=== PATIENT | female | born 1995 | race African-American/Black ===

== ENCOUNTER 2024-06-21 14:34 | Inpatient (IN) | payer MEDICAID ==
[~2024-06-21] VITALS: Ht 162.6 cm; Wt 64.0 kg
[2024-06-21] MEDS: SODIUM CHLORIDE 0.9% 1,000 ML IV ONE (15:41)
[2024-06-21] MEDS: SODIUM CHLORIDE 0.9% (SEPSIS BOLUS) IV ONE (16:00)
[2024-06-21] MEDS: MORPHINE SULFATE 4 MG/ML INJ (FOR IV/IM USE) IV ONE (16:00)
[2024-06-21] MEDS: ACETAMINOPHEN 1000MG/100ML 100 ML IV ONE (16:00)
[2024-06-21 16:01] LABS: BASOPHILS % 0.6 % (0.0-2.0); EOSINOPHILS % 1.6 % (0.0-5.0); LYMPHOCYTES % 7.9 % (20.0-50.0); MEAN CORPUSCULAR HEMOGLOBIN 24.4 pg (28.0-32.0); MEAN CORPUSCULAR HGB CONC 31.2 g/dL (31.0-37.0); MEAN PLATELET VOLUME 7.9 fl (7.4-10.4); MONOCYTES % 26.4 % (2.0-8.0); NEUTROPHILS % 63.5 % (40.0-76.0); PLATELET 321 x1000/uL (130-400); RED BLOOD CELL COUNT 4.11 mill/uL (4.2-5.4); RED CELL DISTRIBUTION WIDTH 16.4 % (11.6-14.6); WHITE BLOOD COUNT 3.5 x1000/uL (4.5-11.0)
[2024-06-21 16:03] LABS: CARBON DIOXIDE 21 mEq/L (21-32); CHLORIDE 105 mEq/L (98-107); POTASSIUM 3.9 mEq/L (3.5-5.1); SODIUM 134 mEq/L (136-145)
[2024-06-21 16:04] LABS: CALCIUM 9.4 mg/dL (8.7-10.4)
[2024-06-21 16:09] LABS: CREATININE 0.7 mg/dL (0.6-1.0); GLUCOSE 80 mg/dL (70-105)
[2024-06-21 16:11] LABS: PROTHROMBIN TIME 11.2 sec (9.6-11.0)
[2024-06-21 16:18] LABS: DIFFERENTIAL COMMENT 1
[2024-06-21 16:19] LABS: HCG SCREEN POSITIVE
[2024-06-21 16:37] LABS: ETHANOL BLOOD < 10 mg/dL (<10); TROPONIN I HIGH SENSITIVITY < 4 ng/L (3.0-34); UREA NITROGEN BLOOD < 5 mg/dL (9-23)
[2024-06-21 19:21] LABS: CLARITY URINE TURBID (CLEAR); COLOR URINE YELLOW (YELLOW); GLUCOSE URINE NEGATIVE (NEGATIVE); KETONES URINE 2+ (NEGATIVE); LEUKOCYTE ESTERASE URINE 1+ (NEGATIVE); NITRITE URINE POSITIVE (NEGATIVE); OCCULT BLOOD URINE TRACE (NEGATIVE); PROTEIN URINE 1+ (NEGATIVE); SPECIFIC GRAVITY URINE 1.025 (1.005-1.030)
[2024-06-21 19:36] LABS: *AMPHETAMINES SCREEN URINE NEGATIVE (NEGATIVE); *BARBITURATES SCREEN URINE NEGATIVE (NEGATIVE); *BENZODIAZEPINES SCREEN URINE NEGATIVE (NEGATIVE); *COCAINE SCREEN URINE NEGATIVE (NEGATIVE); METHADONE URINE SCREEN NEGATIVE (NEGATIVE)
[2024-06-21 19:37] LABS: CANNABINOID URINE SCREEN PRESUMPTIVE POSITIVE (NEGATIVE); ECSTASY MDMA SCREEN URINE NEGATIVE (NEGATIVE); OPIATES URINE SCREEN PRESUMPTIVE POSITIVE (NEGATIVE); PHENCYCLIDINE URINE SCREEN NEGATIVE (NEGATIVE)
[2024-06-21] MEDS: CEFTRIAXONE 1GM/50ML 50 ML IV ONE (20:19)
[2024-06-21 20:48] LABS: BACTERIA URINE 3+; SQUAMOUS EPITHELIAL CELL URINE 2+ /lpf (RARE/1+)
[2024-06-21 20:57] VITALS: PULSE 118; RESP 22; O2SAT 98
[2024-06-21] MEDS: ALBUTEROL (0.083%) 2.5MG/3ML NEB HHN ONE (20:57)
[2024-06-22] VITALS (9 sets, daily range): BP systolic 121–142; BP diastolic 68–88; PULSE 76–119; RESP 18–24; TEMP 36.28068–37.1964; O2SAT 93–100
[2024-06-22] MEDS ORDERED: ACETAMINOPHEN 325MG TABLET PO PRN (00:15)
[2024-06-22] MEDS: IPRATROPIUM/ALBUTEROL 0.5-3(2.5)MG/3ML NEB HHN SCH ×2 (02:29→13:58)
[2024-06-22] MEDS: SODIUM CHLORIDE 0.9% 1,000 ML IV SCH (06:09)
[2024-06-22 06:38] LABS: CHLORIDE 109 mEq/L (98-107); POTASSIUM 3.6 mEq/L (3.5-5.1); SODIUM 137 mEq/L (136-145)
[2024-06-22 06:39] LABS: CALCIUM 8.7 mg/dL (8.7-10.4); CARBON DIOXIDE 18 mEq/L (21-32)
[2024-06-22 06:44] LABS: CREATININE 0.6 mg/dL (0.6-1.0); GLUCOSE 70 mg/dL (70-105)
[2024-06-22 06:46] LABS: CREATINE KINASE 183 IU/L (34-145)
[2024-06-22 07:16] LABS: HEPATITIS B SURFACE ANTIGEN NEGATIVE (Negative)
[2024-06-22 07:38] LABS: HEPATITIS C AB NON REACTIVE (Neg) (Negative)
[2024-06-22 07:39] LABS: HEMATOCRIT. 28.7 % (36.0-48.0); HEMOGLOBIN. 9.3 g/dL (12.0-16.0); MEAN CORPUSCULAR HEMOGLOBIN 25.1 pg (28.0-32.0); MEAN CORPUSCULAR HGB CONC 32.4 g/dL (31.0-37.0); MEAN CORPUSCULAR VOLUME 77.7 fL (81.0-99.0); MEAN PLATELET VOLUME 8.8 fl (7.4-10.4); PLATELET 233 x1000/uL (130-400); RED CELL DISTRIBUTION WIDTH 16.3 % (11.6-14.6)
[2024-06-22 07:45] LABS: DIFFERENTIAL COMMENT 1
[2024-06-22] MEDS: BUDESONIDE 0.5MG/2ML NEB HHN SCH (08:19)
[2024-06-22 08:45] LABS: UREA NITROGEN BLOOD < 5 mg/dL (9-23)
[2024-06-22] MEDS: LEVETIRACETAM 500MG/5ML CUP PO SCH (08:52)
[2024-06-22] MEDS: CEFTRIAXONE 1GM/50ML 50 ML IV SCH (08:53)
[2024-06-22] MEDS ORDERED: IPRATROPIUM/ALBUTEROL 0.5-3(2.5)MG/3ML NEB HHN PRN (13:30)
[2024-06-22 17:20] LABS: CREATINE KINASE 189 IU/L (34-145)
[2024-06-22] MEDS ORDERED: DIPHENHYDRAMINE 50MG/ML VIAL IM PRN (19:45)
[2024-06-22] MEDS ORDERED: DIPHENHYDRAMINE 25MG CAPSULE PO PRN (21:00)
[2024-06-22 21:28] LABS: HYPOCHROMASIA 1+; MICROCYTOSIS 1+; PLATELET ESTIMATE NORMAL
[2024-06-22] MEDS ORDERED: METHYLPREDNISOLONE 40MG/ML INJ IV ONE (23:15)
[2024-06-22] MEDS ORDERED: DIPHENHYDRAMINE 50MG/ML VIAL IV ONE (23:15)
[2024-06-23] VITALS (10 sets, daily range): BP systolic 97–140; BP diastolic 50–86; PULSE 73–91; RESP 18–20; TEMP 36.33624–36.89184; O2SAT 95–99
[2024-06-23] MEDS: SODIUM CHLORIDE 0.9% 1,000 ML IV ONE (01:08)
[2024-06-23] MEDS: METHYLPREDNISOLONE SOD SUCC 125MG/2ML (ACT-O-VIAL) IV NR (01:09)
[2024-06-23] MEDS: LEVETIRACETAM 500MG PREMIX 100 ML IV SCH (02:42)
[2024-06-23] MEDS ORDERED: LIDOCAINE HCL 1% 10 MG/ML 10ML VIAL ONE (08:57)
[2024-06-23] MEDS ORDERED: LEVETIRACETAM 500MG PREMIX 100 ML IV SCH (09:00)
[2024-06-23] MEDS: METHYLPREDNISOLONE SOD SUCC 40MG/ML (ACT-O-VIAL) IV SCH (14:50)
[2024-06-23] MEDS ORDERED: GUAIFENESIN 600MG ER TABLET PO PRN (17:00)
[2024-06-24] VITALS (7 sets, daily range): BP systolic 89–131; BP diastolic 44–86; PULSE 66–90; RESP 18; TEMP 36.7–36.9; O2SAT 95–99
[2024-06-24] MEDS: NITROFURANTOIN MACROCRYSTAL 50MG CAPSULE PO SCH (06:00)
[2024-06-24] MEDS: LORAZEPAM 2MG/ML INJ IV PRN (13:35)
[2024-06-24 19:05] LABS: HEMATOCRIT. 29.3 % (36.0-48.0); HEMOGLOBIN. 9.4 g/dL (12.0-16.0); MEAN CORPUSCULAR HEMOGLOBIN 24.8 pg (28.0-32.0); MEAN CORPUSCULAR VOLUME 77.6 fL (81.0-99.0); MEAN PLATELET VOLUME 8.4 fl (7.4-10.4); PLATELET 257 x1000/uL (130-400); RED BLOOD CELL COUNT 3.77 mill/uL (4.2-5.4); RED CELL DISTRIBUTION WIDTH 16.6 % (11.6-14.6); WHITE BLOOD COUNT 3.3 x1000/uL (4.5-11.0)
[2024-06-24 19:06] LABS: CHLORIDE 109 mEq/L (98-107); DIFFERENTIAL COMMENT 1; POTASSIUM 3.2 mEq/L (3.5-5.1); SODIUM 141 mEq/L (136-145)
[2024-06-24 19:07] LABS: CALCIUM 8.5 mg/dL (8.7-10.4); CARBON DIOXIDE 22 mEq/L (21-32)
[2024-06-24 19:13] LABS: CREATININE 0.5 mg/dL (0.6-1.0); GLUCOSE 74 mg/dL (70-105)
[2024-06-24 19:31] LABS: UREA NITROGEN BLOOD < 5 mg/dL (9-23)
[2024-06-24 19:45] LABS: ANISOCYTOSIS 1+; HYPOCHROMASIA 1+; MICROCYTOSIS 1+; PLATELET ESTIMATE NORMAL
[2024-06-24] MEDS: DIPHENHYDRAMINE 25MG CAPSULE PO NR (20:37)
[2024-06-25 00:08] VITALS: PULSE 85; RESP 18; O2SAT 97
[2024-06-25 06:35] LABS: HEMATOCRIT. 31.6 % (36.0-48.0); HEMOGLOBIN. 10.1 g/dL (12.0-16.0); MEAN CORPUSCULAR HEMOGLOBIN 24.8 pg (28.0-32.0); MEAN CORPUSCULAR HGB CONC 31.9 g/dL (31.0-37.0); MEAN CORPUSCULAR VOLUME 77.6 fL (81.0-99.0); MEAN PLATELET VOLUME 8.7 fl (7.4-10.4); PLATELET 244 x1000/uL (130-400); RED BLOOD CELL COUNT 4.07 mill/uL (4.2-5.4); RED CELL DISTRIBUTION WIDTH 16.5 % (11.6-14.6); WHITE BLOOD COUNT 2.7 x1000/uL (4.5-11.0)
[2024-06-25 06:53] LABS: CHLORIDE 108 mEq/L (98-107); POTASSIUM 3.5 mEq/L (3.5-5.1); SODIUM 137 mEq/L (136-145)
[2024-06-25 06:54] LABS: CALCIUM 8.5 mg/dL (8.7-10.4); CARBON DIOXIDE 21 mEq/L (21-32)
[2024-06-25 06:59] LABS: CREATININE 0.5 mg/dL (0.6-1.0); DIFFERENTIAL COMMENT 1; GLUCOSE 71 mg/dL (70-105)
[2024-06-25 07:34] LABS: UREA NITROGEN BLOOD < 5 mg/dL (9-23)
[2024-06-25] MEDS: METHYLPREDNISOLONE SOD SUCC 40MG/ML (ACT-O-VIAL) IV SCH (09:33)
[2024-06-25 13:46] VITALS: BP 121/83; PULSE 107; TEMP 97.8; O2SAT 97
[2024-06-25 14:36] VITALS: PULSE 107; RESP 18; O2SAT 98
[2024-06-25] MEDS ORDERED: METH32TA2 MT (14:50)
[2024-06-25 21:45] LABS: ANISOCYTOSIS 1+; HYPOCHROMASIA 1+; MICROCYTOSIS 1+; PLATELET ESTIMATE NORMAL
== END 2024-06-25 16:55 | disposition home or self-care (01) | DRG 566 ==
LOC: ER 14:40 → 7WST 21:40 → EDBEDREQ 21:51 → EDBEDREQSVC 21:51 → EDBEDREQTM 21:51
PROVIDERS: ADMIT Internal Medicine; ATTEND Internal Medicine
DX: O98.811 Other maternal infectious and parasitic diseases complicating pregnancy, first trimester (principal); J96.01 Acute respiratory failure with hypoxia; A41.9 Sepsis, unspecified organism; G92.8 Other toxic encephalopathy; D57.1 Sickle-cell disease without crisis; O23.41 Unspecified infection of urinary tract in pregnancy, first trimester; E87.1 Hypo-osmolality and hyponatremia; I69.351 Hemiplegia and hemiparesis following cerebral infarction affecting right dominant side; O99.011 Anemia complicating pregnancy, first trimester; N39.0 Urinary tract infection, site not specified; D50.9 Iron deficiency anemia, unspecified; Z3A.01 Less than 8 weeks gestation of pregnancy; F12.10 Cannabis abuse, uncomplicated; O99.411 Diseases of the circulatory system complicating pregnancy, first trimester; O99.511 Diseases of the respiratory system complicating pregnancy, first trimester; O99.281 Endocrine, nutritional and metabolic diseases complicating pregnancy, first trimester; O99.321 Drug use complicating pregnancy, first trimester; O99.351 Diseases of the nervous system complicating pregnancy, first trimester; I50.9 Heart failure, unspecified; J45.901 Unspecified asthma with (acute) exacerbation; O24.111 Pre-existing type 2 diabetes mellitus, in pregnancy, first trimester; Z82.49 Family history of ischemic heart disease and other diseases of the circulatory system; Z88.0 Allergy status to penicillin; Z88.5 Allergy status to narcotic agent; Z91.148 Patient's other noncompliance with medication regimen for other reason; Z91.199 Patient's noncompliance with other medical treatment and regimen due to unspecified reason
CPT/HCPCS: 36415; 70551; 71045; 76801; 80048; 80305; 80320; 81003; 82550; 82962; 83605; 84484; 84702; 84703; 85025; 85044; 86705; 86850; 86870; 86900; 87340; 93005; 94070; 94640; 94664; 99285; A4606; J0696; J1200; J1953; J2003; J2060; J2270; J2919; J2920; J7030; J7626; Q0163; G0480; J0131

== ENCOUNTER 2025-02-17 02:21 | Emergency (ER) | payer MEDICAID ==
[~2025-02-17] VITALS: Ht 165.1 cm; Wt 68.0 kg
[~2025-02-17 02:21] MED LIST: ALBU18HF2 IH; FERR325T30 PO; FLUT1DIS3 INH; FURO-152 MT; KEPP500 MT
[2025-02-17 02:23] VITALS: O2SAT 98
[2025-02-17] MEDS ORDERED: DIPHENHYDRAMINE 50MG CAPSULE PO ONE (02:30)
[2025-02-17] MEDS: DIPHENHYDRAMINE 25MG CAPSULE PO NR (02:43)
[2025-02-17 02:46] VITALS: BP 105/63; PULSE 86; RESP 16; TEMP 37.1; O2SAT 97
[2025-02-17 03:42] LABS: BASOPHILS % 0.3 % (0.0-2.0); EOSINOPHILS % 0.6 % (0.0-5.0); HEMATOCRIT. 33.8 % (36.0-48.0); HEMOGLOBIN. 11.0 g/dL (12.0-16.0); LYMPHOCYTES % 29.3 % (20.0-50.0); MEAN PLATELET VOLUME 8.2 fl (7.4-10.4); MONOCYTES % 12.4 % (2.0-8.0); NEUTROPHILS % 57.4 % (40.0-76.0); PLATELET 402 x1000/uL (130-400); RED BLOOD CELL COUNT 4.14 mill/uL (4.2-5.4); RED CELL DISTRIBUTION WIDTH 21.3 % (11.6-14.6)
[2025-02-17 04:01] LABS: CREATININE 0.9 mg/dL (0.6-1.0)
[2025-02-17 04:02] LABS: UREA NITROGEN BLOOD 10 mg/dL (9-23)
[2025-02-17 04:03] LABS: ASPARTATE AMINOTRANSFERASE 23 IU/L (<34)
[2025-02-17 04:04] LABS: BILIRUBIN DIRECT < 0.1 mg/dL (<=3.0); BILIRUBIN TOTAL 0.3 mg/dL (0.1-1.0); PROTEIN TOTAL 6.5 g/dL (6.0-8.3)
[2025-02-17] MEDS ORDERED: DIPH25CA83 MT (04:34)
== END 2025-02-17 05:45 | disposition home or self-care (01) ==
LOC: ER 02:21
DX: L50.9 Urticaria, unspecified (principal); E11.9 Type 2 diabetes mellitus without complications; I50.9 Heart failure, unspecified; J45.909 Unspecified asthma, uncomplicated; Z79.51 Long term (current) use of inhaled steroids; Z79.899 Other long term (current) drug therapy; Z86.73 Personal history of transient ischemic attack (TIA), and cerebral infarction without residual deficits; Z88.0 Allergy status to penicillin; Z88.5 Allergy status to narcotic agent
CPT/HCPCS: 80076; 80048; 85025; 36415; 71045; 93005; 99285; Q0163; Z7610; A4606